=== PATIENT | female | born 1975 | race Caucasian/White ===

== ENCOUNTER 2017-06-09 10:53 | Emergency (ER) | payer BC, OTHER ==
[2017-06-09 11:20] LABS: Bilirubin Small (Negative); Blood, Urine Negative (Negative); Clarity Slightly Cloudy (Clear); Glucose, Urine (Dipstick) 100 mg/dL (Negative); Leukocyte Trace (Negative); Nitrite Negative (Negative); Protein, Urine (Dipstick) Trace mg/dL (Neg-Trace); Specific Gravity, Urine 1.025 (1.005-1.030); pH, Urine 5.5 (5.0-9.0)
[2017-06-09 11:21] LABS: Pregnancy Test - Urine (BHCG) Negative (Negative); Pregu Control Background? CLEAR/WHITE (CLR/WHITE); Pregu Control Bar Appear? YES (CONTROL BAR); Specific Gravity 1.025 (1.002-1.036)
[2017-06-09 11:25] LABS: Bacteria/HPF 2+ HPF (None Seen); Crystals/HPF 1+ AMORPH URATES HPF (Negative); RBC/HPF None Seen HPF (0-3); Transitional Epithelial 0-3 HPF (0-3)
[2017-06-09 11:39] LABS: ALT (SGPT) 15 U/L (8-55); AST (SGOT) 17 U/L (5-34); Albumin 3.7 g/dL (3.5-5.0); Alkaline Phosphatase 50 U/L (40-150); Anion Gap 13 mmol/L (10-20); BUN (Urea Nitrogen) 15 mg/dL (7.0-18.7); Bilirubin, Total 0.6 mg/dL (0.2-1.2); Calc. Creatinine Clearance 0 mL/min (70-130); Carbon Dioxide 22 mmol/L (22-29); Chloride 105 mmol/L (98-107); Estimated GFR-MDRD 87; Globulin 3.3 g/dL (2.4-3.5); Glucose 92 mg/dL (70-105); Lipase 9 U/L (8-78); Potassium 3.9 mmol/L (3.5-5.1); Sodium 136 mmol/L (136-145)
[2017-06-09 11:49] LABS: #Basophils 0.1 thou/uL (0.0-0.2); #Eosinphils 0.1 thou/uL (0.0-0.7); #Lymphocytes 1.4 thou/uL (1.20-3.40); #Monocytes 0.6 thou/uL (0.11-0.59); #Neutrophils 11.3 thou/uL (1.40-6.50); %Basophils 0.4 % (0.0-1.0); %Eosinophils 0.4 % (0.0-10.0); %Lymphocytes 10.8 % (21.0-51.0); %Monocytes 4.1 % (0.0-10.0); %Neutrophils 84.3 % (42.0-75.0); Hemoglobin 14.1 g/dL (12.0-16.0); Mean Corpuscular Hemoglobin 31.1 pg (27.0-31.0); Mean Corpuscular Volume 94.1 fl (81.0-99.0); Mean Platelet Volume 7.7 fL (7.4-10.4); Platelet Count 131 thou/uL (130-400); RBC Distribution Width 11.4 % (11.5-14.5); Red Blood Cell (RBC) Count 4.55 mill/uL (4.20-5.40); White Blood Cell (WBC) Count 13.4 thou/uL (4.8-10.8)
[2017-06-09] MEDS ORDERED: cefTRIAXone\\ROCEPHIN 500 MG VIAL ONE (12:23)
[2017-06-09] MEDS ORDERED: Doxycycline Hyclate 100 MG TAB ONE (12:23)
[2017-06-09] MEDS ORDERED: Sterile Water 0 ML ONE ×2 (12:24→12:42)
[2017-06-11 18:37] LABS: Chlamydia by PCR Not Detected (NotDetected); GC by PCR Not Detected (NotDetected)
== END 2017-06-09 12:50 | disposition home or self-care (01) ==
LOC: BURERS 10:53
DX: N73.9 Female pelvic inflammatory disease, unspecified (principal); F17.210 Nicotine dependence, cigarettes, uncomplicated
CPT/HCPCS: 80053; 81003; 81015; 81025; 83690; 85025; 87480; 87491; 87510; 87591; 87660; 96372; J0696

== ENCOUNTER 2017-06-10 08:55 | Outpatient (CLI) | payer OTHER ==
--- NOTE | 2017-06-10 14:47 | ULT ---
ULTRASOUND OF THE PELVIS PERFORMED USING BOTH ABDOMINAL AND ENDOVAGINAL IMAGING: Documentary images and worksheets were provided and reviewed. FINDINGS: The uterus measures 5.4 x 2.9 x 3.6 cm. The endometrium is 7 mm in width but there does appear to be fluid in the endometrial cavity. The right ovary is 3.4 cm long and appears to contained a single complex mass or debris filled cyst that measures about 2.4 cm in size. The left ovary was 3.1 cm long and has at least two complex area s within it that could be masses or complex cysts. There is blood flow present in each ovary. Significantly, there is a 3.1 x 1.5 x 1.9 cm complex fluid collection in the patient's cul-de-sac. I t appears to be fluid with debris within it. I would be quite suspicious if this is an abscess. Give n the above findings, one would have to wonder if the findings in the ovary could be infected cysts. IMPRESSION: 1. 3.1 cm complex fluid collection in the cul-de-sac suspicious for an abscess as it appears to cont ain a fair amount of fluid and debris. 2. Some fluid in the endometrial cavity. 3. One small complexity in the right ovary and two in the left ovary. While literal masses are possi ble, cysts with debris are more likely. Whether these are infected or not is unknown, but certainly should be in the differential. I do not see any dilated tubes. Findings discussed with Dr. Hargrove at 1037 on 06-10-17. POS: [facility]
== END 2017-06-10 08:56 | disposition home or self-care (01) ==
LOC: BURULT 08:55
PROVIDERS: ATTEND Emergency Medicine
DX: N70.93 Salpingitis and oophoritis, unspecified (principal)
CPT/HCPCS: 76856